=== PATIENT | female | born 1990 | race Caucasian/White ===

== ENCOUNTER 2020-01-27 16:10 | Inpatient (IN) | payer MEDICAID ==
[2020-01-27 17:05] LABS: ADD MANUAL MICROSCOPIC YES; APPEARANCE,URINE CLEAR; BILIRUBIN,URINE NEGATIVE (NEGATIVE); COLOR,URINE STRAW; GLUCOSE, URINE NEGATIVE (NEGATIVE); KETONES,URINE NEGATIVE (NEGATIVE); LEUKOCYTE ESTERASE,URINE TRACE (NEGATIVE); NITRITE,URINE NEGATIVE (NEGATIVE); PROTEIN,URINE 100 mg/dL (NEGATIVE); URINE SPECIFIC GRAVITY 1.026
[2020-01-27 17:06] LABS: AMORPHOUS SEDIMENT,UR TRACE; BACTERIA,URINE TRACE /HPF; WBC,URINE 0-1 /HPF
[2020-01-27 17:28] LABS: URINE AMPHETAMINES SCREEN NEGATIVE; URINE BARBITURATES SCREEN NEGATIVE; URINE BENZODIAZEPINES SCREEN NEGATIVE; URINE COCAINE SCREEN NEGATIVE; URINE MARIJUANA (THC) SCREEN NEGATIVE; URINE METHADONE SCREEN NEGATIVE; URINE PHENCYCLIDINE SCREEN NEGATIVE
[2020-01-27 17:37] LABS: UR PRO/CREAT RATIO RESULT 2.5 mg/mg (0.0-0.2); URINE PROTEIN 481.1 mg/dL (<12)
[2020-01-27 17:47] LABS: ABSOLUTE LYMPHOCYTES (AUTO) 1.7 10^3/uL (0.5-4.7); ABSOLUTE MONOCYTES (AUTO) 0.8 10^3/uL (0.1-1.4); ABSOLUTE NEUT (AUTO) 9.3 10^3/uL (1.7-8.2); BASOPHILS % (AUTO) 0.2 % (0-2); EOSINOPHILS % (AUTO) 0.4 % (0-6); HEMOGLOBIN 9.1 g/dL (12.0-15.5); LYMPHOCYTES % (AUTO) 14.3 % (13-45); MEAN CORPUSCULAR HEMOGLOBIN 27.6 pg (27.0-33.4); MEAN CORPUSCULAR HGB CONC 32.4 g/dL (32.0-36.0); MEAN CORPUSCULAR VOLUME 85 fl (80-97); MONOCYTES % (AUTO) 6.7 % (3-13); PLATELET COUNT 160 10^3/uL (150-450); RED BLOOD COUNT 3.28 10^6/uL (3.72-5.28); RED CELL DISTRIBUTION WIDTH 15.7 % (11.5-14.0); SEGMENTED NEUTROPHILS % (AUTO) 78.4 % (42-78); TOTAL CELLS COUNTED % (AUTO) 100 %; WHITE BLOOD COUNT 11.8 10^3/uL (4.0-10.5)
[2020-01-27 18:09] LABS: ALBUMIN 2.9 g/dL (3.5-5.0); ALKALINE PHOSPHATASE 129 U/L (38-126); ANION GAP 5 (5-19); ASPARTATE AMINO TRANSFERASE 22 U/L (14-36); BILIRUBIN,DIRECT 0.1 mg/dL (0.0-0.4); BILIRUBIN,TOTAL 0.4 mg/dL (0.2-1.3); BLOOD UREA NITROGEN 11 mg/dL (7-20); CALCIUM 7.9 mg/dL (8.4-10.2); CARBON DIOXIDE 22 mmol/L (22-30); CHLORIDE 107 mmol/L (98-107); POTASSIUM 3.7 mmol/L (3.6-5.0); TOTAL PROTEIN 5.5 g/dL (6.3-8.2); URIC ACID 6.4 mg/dL (2.5-6.2)
[2020-01-27 18:14] LABS: GLUCOSE 67 mg/dL (75-110)
--- NOTE | 2020-01-27 19:25 | Admission Physical ---
Datetime Report Generated by CPN: 01/27/2020 19:24 CURRENT ADMISSION Chief Complaint: Other Indication for Induction: Not Applicable Admit Impression : , Intrauterine ; Observation/Evaluation Admit Plan: Admit to Unit; Observation/Evaluation ALLERGIES Medication Allergies: No Medication Allergies: No Known Allergies (01/27/2020) Latex: No Latex Allergies OBSTETRICAL HISTORY EDC: 02/16/2020 00:00 : 3 Para: 2 Term: 1 : 1 Gestational Diabetes: No Rh Sensitization: No Incompetent Cervix: No YOUNG: No Infertility: No ART Treatment: No Uterine Anomaly: No IUGR: No Hx Previous C/S: No Macrosomia: No Hx Loss/Stillborn: No PIH: No Hx : No Placenta Previa/Abruption: No Depression/PP Depression: No PTL/PROM: No Post Hemorrhage: No SEE RECORDS Alcohol: No Marijuana : No Cocaine: No Other Illicit Drugs: No Cigarettes: Never Smoker. [id number] MEDICAL HISTORY Diabetes: No Blood Transfusion: No Pulmonary Disease (Asthma, TB): No Breast Disease: No Hypertension: No Size Mixer Surgery: No Heart Disease: No Hosp/Surgery: No Autoimmune Disorder: No Anesthetic Complications: No Kidney Disease: No Abnormal Pap Smear: No Neuro/Epilepsy: No Psychiatric Disorders: No Other Medical Diseases: No Hepatitis/Liver Disease: No Significant Family History: No Varicosities/Phlebitis: No Trauma/Violence : No Thyroid Dysfunction: No INFECTIOUS HISTORY Gonorrhea: No Genital Herpes: No Chlamydia: No Tuberculosis: No Syphilis: No Hepatitis: No HIV/AIDS Exposure: No Rash or Viral Illness: No HPV: No PHYSICAL EXAM General: Normal HEENT: Normal Neurologic: Normal Thyroid: Normal Heart: Normal Lungs: Normal Breast: Deferred Back: Normal Abdomen: Normal Genitourinary Exam: Normal Extremities: Normal DTRs: Normal Pelvic Type: Adequate FETUS A EGA: 37.1 PLANS FOR LABOR AND DELIVERY Labor and Delivery: None Pain Management: Epidural Feeding Preference: Breast Benefit of Breast Feed Discussed: Yes Circumcision: N/A INFORMED CONSENT Signature: with User ID: [email or web address]
[2020-01-27] MEDS ORDERED: NALBUPHINE HCL INJ 10 MG/1 ML AMPULE INJ ONE (21:56)
[2020-01-27] MEDS ORDERED: PROMETHAZINE HCL INJ 25 MG/1 ML VIAL IV ONE (21:56)
[2020-01-27] MEDS ORDERED: NALBUPHINE HCL INJ 10 MG/1 ML AMPULE ONE (21:58)
[2020-01-27] MEDS ORDERED: PROMETHAZINE HCL INJ 25 MG/1 ML VIAL ONE (21:58)
[2020-01-28] MEDS ORDERED: RINGERS SOLUTION,LACTATED 1,000 ML IV PRN (08:38)
[2020-01-28] MEDS ORDERED: OXYTOCIN/0.9 % SODIUM CHLORIDE 30 UNIT/500 ML RTUINJ IV PRN ×2 (08:41→12:23)
[2020-01-28] MEDS ORDERED: OXYTOCIN 10 UNIT/ML VIAL ONE (08:43)
[2020-01-28] MEDS ORDERED: MISOPROSTOL 0.2 MG TABLET ONE (08:44)
[2020-01-28] MEDS ORDERED: LIDOCAINE 1% INJ-PF (10 MG/ML) 30 ML SDV ONE (08:44)
[2020-01-28] MEDS ORDERED: OXYTOCIN/0.9 % SODIUM CHLORIDE 30 UNIT/500 ML RTUINJ ONE (08:44)
[2020-01-28] MEDS ORDERED: EPHEDRINE SULFATE INJ 50 MG/1 ML AMPULE ONE (10:35)
[2020-01-28] MEDS ORDERED: ROPIVACAINE HCL 0.2% INJ/PF (2 MG/ML) 20 ML SDV ONE (10:36)
[2020-01-28] MEDS ORDERED: FENTANYL/BUPIVACAINE/NS/PF 300 MCG/150 ML RTUINJ EPI ONE (10:36)
[2020-01-28] MEDS ORDERED: FENTANYL CITRATE INJ/PF 100 MCG/2 ML AMPUL ONE (10:58)
[2020-01-28] MEDS ORDERED: DIPH/PERTUSS(ACELL)/TETANUS VAC/PF 0.5 ML SYR (>=10YO) IM PRN (12:23)
[2020-01-28] MEDS ORDERED: MEASLES,MUMPS&RUBELLA VACC/PF 0.5 ML VIAL SUBCUT PRN (12:23)
[2020-01-28] MEDS ORDERED: PROMETHAZINE HCL INJ 25 MG/1 ML VIAL IV PRN (12:23)
[2020-01-28] MEDS ORDERED: BENZOCAINE/MENTHOL AEROSOL SPRAY 56 ML TOP PRN (12:23)
[2020-01-28] MEDS ORDERED: GLYCERIN/WITCH HAZEL LEAF 1 EACH MED..WIPE TP PRN (12:23)
[2020-01-28] MEDS ORDERED: ZOLPIDEM TARTRATE 5 MG TABLET PO PRN (12:23)
[2020-01-28] MEDS ORDERED: NA PHOS,M-B/NA PHOS,DI-BA (ADULT) 133 ML ENEMA PR PRN (12:23)
[2020-01-28] MEDS ORDERED: DIPHENHYDRAMINE HCL 25 MG CAPSULE PO PRN (12:23)
[2020-01-28] MEDS ORDERED: MAGNESIUM HYDROXIDE SUSP 30 ML UDCUP PO PRN (12:23)
[2020-01-28] MEDS ORDERED: PROMETHAZINE HCL 25 MG SUPP.RECT PR PRN (12:23)
[2020-01-28] MEDS ORDERED: PROMETHAZINE HCL 25 MG TABLET PO PRN (12:23)
[2020-01-28] MEDS ORDERED: ACETAMINOPHEN WITH CODEINE #3 TABLET PO PRN ×2 (12:23)
[2020-01-28] MEDS ORDERED: PSEUDOEPHEDRINE HCL 30 MG TABLET PO PRN (12:23)
[2020-01-28] MEDS ORDERED: ACETAMINOPHEN 325 MG TABLET PO PRN (12:23)
[2020-01-28] MEDS ORDERED: DIBUCAINE 1% OINTMENT 28 GM TP PRN (12:23)
[2020-01-28] MEDS ORDERED: NIFEDIPINE 10 MG CAPSULE ONE (13:41)
[2020-01-28] MEDS ORDERED: MAGNESIUM SULFATE 20 GM/500 ML RTUINJ IV ONE (13:51)
[2020-01-28] MEDS ORDERED: MAGNESIUM SULFATE 4 GM/100 ML RTUPB IV ONE ×4 (13:51→14:45)
[2020-01-28] MEDS: MAGNESIUM SULFATE 20 GM/500 ML RTUINJ IV PRN (14:35)
[2020-01-28] MEDS ORDERED: ACETAMINOPHEN 1,000 MG/100 ML RTUPB IV ONE ×2 (14:54→14:55)
[2020-01-28] MEDS ORDERED: IBUPROFEN 800 MG TABLET ONE ×2 (14:54→22:25)
[2020-01-28] MEDS: IBUPROFEN 800 MG TABLET PO SCH ×2 (15:01→22:27)
--- NOTE | 2020-01-28 18:51 | Warning Signs in Babies ---
VOD Warning Signs Datetime Report Generated by [facility]: 01/28/2020 18:51 VOD#608 -Warning Signs in Babies: Viewed with Parent(s)/Family (01/27/2020 16:58:Viry Lara RN)
--- NOTE | 2020-01-28 18:52 | Delivery Summary ---
Del Sum A-C Datetime Report Generated by CPN: 01/28/2020 18:52 DELIVERY PERSONNEL DELIVERY PERSONNEL: [id number] Delivery Doctor:: Naomie Bundy CNM Nurse Hand Filer Balance Wheel Certified:: Gabby Silva CNM Labor and Delivery Nurse:: Viry Lara RNsecond shift supervisor Nurse:: RUMA Hodges Nursery Nurse:: Shahrzad Ga RN Nursery Nurse:: Mini Dominguez RN Hot Stick Worker/JEWELRY DRILL OPERATOR: Lisette Novak, BUILDING INSULATION INSTALLER MATERNAL INFORMATION Delivery Anesthesia: Epidural Medications After Delivery: Pitocin Bolus-Please Comment Meds After Delivery Comment: Pitocin 30 units in 500 ml ns open for bolus at delivery Delivery QBL: 50 Maternal Complications: Precipitous Labor (<3hrs); Other Complication Details: preeclampsia Provider Comments: DIRECT OA VIABLE MALE INFANT WITH SPONTANEOUS CRY. SPONTANEOUS INTACT PLACENTA WITH 3VC. SMALL FIRST DEGREE PERINEAL LACERATION REPAIRED UNDER EPIDURAL ANESTHESIA. MOTHER AND STABLE IN L_D #1. LABOR SUMMARY EDC: 02/16/2020 00:00 No. Babies in Womb: 1 Attempted: No Labor Anesthesia: IV Sedation LABOR INFORMATION Reason for Induction: Pre-Eclampsia Onset of Labor: 01/28/2020 08:48 Complete Dilatation: 01/28/2020 11:51 Oxytocin: Induction Group B Beta Strep: Negative Antibiotics # of Doses: 0 Steroids Given: None Reason Steroids Not Administered: Not Applicable MEMBRANES Membranes Rupture Method: Artificial Rupture of Membranes: 01/28/2020 08:48 Length of Rupture (hr): 3.20 Amniotic Fluid Color: Clear Amniotic Fluid Amount: Small Amniotic Fluid Odor: Normal STAGES OF LABOR Stage 1 hr: 3 Stage 1 min: 3 Stage 2 hr: 0 Stage 2 min: 9 Stage 3 hr: 0 Stage 3 min: 5 Total Time in Labor hr: 3 Total Time in Labor min: 17 VAGINAL DELIVERY Episiotomy: None Laceration #1: Perineal Laceration Extension #1: First Degree Laceration Repair: Yes Sponge Count Correct: N/A Sharps Count Correct: N/A CSECTION DELIVERY Primary Indication: N/A Secondary Indication: N/A CSection Incidence: N/A Labor: N/A Elective: N/A CSection Incision: N/A BABY A INFORMATION Delivery Date/Time: 01/28/2020 12:00 Method of Delivery: Vaginal Nurse Controlled Delivery: No Born in Route : No : N/A Forceps: N/A Vacuum Extraction: N/A Shoulder Dystocia : No PRESENTATION/POSITION BABY A Presentation: Cephalic Cephalic Presentation: Vertex Vertex Position: Right Occipital Anterior Breech Presentation: Shivam PLACENTA INFORMATION BABY A Placenta Delivery Time : 01/28/2020 12:05 Placenta Method of Delivery: Spontaneous Placenta Status: Delivered SCORES BABY A Heart Rate 1 min: >100 bpm Resp Effort 1 min: Good Cry Reflex Irritability 1 min: Cough or Sneeze or Pulls Away Muscle Tone 1 min: Active Motion Color 1 min: Body Calypso, Extremities Blue Resuscitation Effort 1 min: Tactile Stimulation SCORE 1 MIN: 9 Heart Rate 5 min: >100 bpm Resp Effort 5 min: Good Cry Reflex Irritability 5 min: Cough or Sneeze or Pulls Away Muscle Tone 5 min: Active Motion Color 5 min: Body Calypso, Extremities Blue Resuscitation Effort 5 min: N/A SCORE 5 MIN: 9 Resuscitation Effort 10 min: N/A INFANT INFORMATION BABY A Gestational Age at Delivery: 37.2 Gestational Status: Early Term- 37- 38.6 Weeks Outcome : Liveborn Infant Condition : Stable Sex: Male IDENTIFICATION BABY A Verification Date/Time: 01/28/2020 13:33 ID Band Number: [id number] Mother's Name Verified: Yes RN Verifying Infant: M Mraco Additional Verifying Personnel: H Ga WEIGHT/LENGTH BABY A Birthweight (gm): 2667 Weight (lb): 5 Infant Weight (oz): 14 Infant Length (in): 19.25 Infant Length (cm): 48.90 CORD INFORMATION BABY A No. Cord Vessels: 3 Nuchal Cord : N/A Cord Blood Taken: Yes-For Eval (Mom's Blood Type - or O+) Infant Suction: None ASSESSMENT BABY A Complications: None Physical Findings at Delivery: Within Normal Limits Infant Respirations: Appears Normal Skin to Skin: No Continuing Education Director/ALS Called : No Care By: H Harmeet/ Matt Dominguez Transferred To: Remains with Mother SIGNATURES Assignment: Brandi Pierre MD Signature: with User ID: [email or web address] : with User ID: [email or web address] : I was personally available for consultation and serving as supervising physician for the MLP.
--- NOTE | 2020-01-28 18:52 | Birth Certificate Data ---
Cert Data Datetime Report Generated by IBETH: 01/28/2020 18:52 CERTIFICATE DATA Delivery Provider: Naomie Bundy CNM (01/27/2020 16:58:RUMA Hodges) 47a. Care: Yes (01/27/2020 16:58:RUMA Hodges) 47b. Date of First Visit: 09/21/2019 00:00 (01/27/2020 16:58:Viry Lara RN) 47c. Date of Last Visit: 01/25/2020 00:00 (01/27/2020 16:58:Viry Lara RN) 47d. Number of Visits: 7 (01/27/2020 16:58:Viry Lara RN) 48a. Number of Prev Live Births: 2 (01/27/2020 16:58:RUMA Hodges) 48b. Now Livin (01/27/2020 16:58:RUMA Hodges) 48c. Live Births Now : 0 (01/27/2020 16:58:QS system process) 48e. Losses: 0 (01/27/2020 16:58:Karo Hawkins, RN) RISK FACTORS IN THIS 49a. Diabetes: No (01/27/2020 16:58:Jeanine Brito RN) 49b. Hypertension: No (01/27/2020 16:58:Jeanine Brito RN) Type of Hypertension: Gestational (PIH, Pre-eclampsia) (01/27/2020 16:58:Jeanine Brito RN) 49c. Previous Births: 1 (01/27/2020 16:58:Mary Salomon RN) 49d. Stillborns: No (01/27/2020 16:58:Jeanine Brito RN) 49d. IUGR: No (01/27/2020 16:58:Jeanine Brito RN) 49e. Infertility Treatment: No (01/27/2020 16:58:Jeanine Brito RN) Mother's Height 50b. Height Inches: 59 (01/28/2020 14:21:QS system process) Mother's Weight 51a. Pre- Weight (lbs): 95 (01/27/2020 16:58:RUMA Hodges) 51b. Weight at Delivery (lbs): 132 (01/28/2020 14:21:QS system process) 52. Dt Last Normal Menses Began: 05/12/2019 00:00 (01/27/2020 16:58:Mary Salomon RN) Infections Present/Treated 53a. Gonorrhea: No (01/27/2020 16:58:Jeanine Brito RN) Results this Hospital Visit : Negative (01/27/2020 16:58:Jeanine Brito RN) 53b. Syphilis: No (01/27/2020 16:58:Jeanine Brito RN) 53c. Chlamydia: No (01/27/2020 16:58:Jeanine Brito RN) Results this Hospital Visit: Negative (01/27/2020 16:58:Jeanine Brito RN) 53d. Hepatitis B: No (01/27/2020 16:58:Jeanine Brito RN) Results this Hospital Visit: Negative (01/27/2020 16:58:Jeanine Brito RN) 53h. Mother Tested for HBsAG: Yes (01/27/2020 16:58:Jeanine Brito RN) 53j. Test Result: Negative (01/27/2020 16:58:Jeanine Brito RN) Cigarette Smoking Cigarette Smoking: Never Smoker. [id number] (01/27/2020 16:58:Jeanine Brito RN) 55a. 3 Months Before Preg - Ci (01/27/2020 16:58:Jeanine Brito RN) 55b. 1st Trimester of Preg- Ci (01/27/2020 16:58:Jeanine Brito RN) 55c. 2nd Trimester of Preg- Ci (01/27/2020 16:58:Jeanine Brito RN) 55d. 3rd Trimester of Preg- Ci (01/27/2020 16:58:Jeanine Brito RN) Onset of Labor 56a. PROM >12 Hrs: 3.20 (01/27/2020 16:58:QS system process) 56b. Precipitous Labor <3 Hrs: 3 (01/27/2020 16:58:QS system process) 56c. Prolonged Labor > 20 Hrs: 3 (01/27/2020 16:58:QS system process) 57a. Induction of Labor: Induction (01/27/2020 16:58:RUMA Hodges) 57c. Non-Vertex Presentation A: Vertex (01/27/2020 16:58:RUMA Hodges) 57d. Steroids - Lung Mat: None (01/27/2020 16:58:RUMA Hodges) 57d. Steroids - Lung Mat: Not Applicable (01/27/2020 16:58:RUMA Hodges) 57f. Mat [place] or Temp >100.4: 98.5 (01/27/2020 16:58:Viry Lara RN) 57g. Moderate/Heavy Meconium: Clear (01/28/2020 08:48:Viry Lara RN) 57h. Intolerance of Labor: N/A (01/27/2020 16:58:RUMA Hodges) : N/A (01/27/2020 16:58:RUMA Hodges) 57i. Epidural/Spinal Anesthesia: IV Sedation (01/27/2020 16:58:RUMA Hodges) Method of Delivery 58a. Forceps - Unsuccessful A: N/A (01/27/2020 16:58:[facility]) 58b. Vacuum - Unsuccessful A: N/A (01/27/2020 16:58:[facility]) 58c. Presentation at 58c. Presentation at - A : Vertex (01/27/2020 16:58:[facility]) 58c. Presentation at - A : Shivam (01/27/2020 16:58:[facility]) 58c. Presentation at - A : Cephalic (01/28/2020 11:36:Viry Lara ) Final Route and Method of Del 58d. Baby A Route/Delivery: Vaginal (01/27/2020 16:58:[facility]) 58e. Trial of Labor Attempted: No (01/27/2020 16:58:[place]aro [place], [facility]) 58e. Trial of Labor Attempted A: N/A (01/27/2020 16:58:Karo [place], [facility]) Maternal Morbidity 59b. 3rd or 4th Degree Lacs: Perineal (01/27/2020 16:58:Karo [place], [facility]) 59b. 3rd or 4th Degree Lacs: First Degree (01/27/2020 16:58:Viry Lara RN) Birthweight Baby A: 2667 (01/27/2020 16:58:Viry Lara RN) 60a. Pounds : 5 (01/27/2020 16:58:QS system process) 60b. Ounces: 14 (01/27/2020 16:58:QS system process) 61. GA at Delivery Baby A: 37.2 (01/27/2020 16:58:Karo [place], [facility]) : Early Term- 37- 38.6 Weeks (01/27/2020 16:58:QS system process) 62a. 5 Minute Baby A: 9 (01/27/2020 16:58:QS system process)
[2020-01-28] MEDS: DOCUSATE SODIUM 100 MG CAPSULE PO SCH (22:22)
[2020-01-28] MEDS: FERROUS SULFATE 325 MG TABLET PO SCH (22:23)
[2020-01-28] MEDS ORDERED: FAMOTIDINE 20 MG TABLET ONE (22:24)
[2020-01-28] MEDS: FAMOTIDINE 20 MG TABLET PO SCH (22:28)
[2020-01-29] MEDS ORDERED: MAGNESIUM SULFATE 20 GM/500 ML RTUINJ IV ONE (05:17)
[2020-01-29] MEDS: MAGNESIUM SULFATE 20 GM/500 ML RTUINJ IV PRN (05:20)
[2020-01-29 06:59] LABS: HEMATOCRIT 24.5 % (36.0-47.0); MEAN CORPUSCULAR HEMOGLOBIN 27.7 pg (27.0-33.4); MEAN CORPUSCULAR HGB CONC 32.6 g/dL (32.0-36.0); MEAN CORPUSCULAR VOLUME 85 fl (80-97); PLATELET COUNT 143 10^3/uL (150-450); RED BLOOD COUNT 2.89 10^6/uL (3.72-5.28); WHITE BLOOD COUNT 12.3 10^3/uL (4.0-10.5)
[2020-01-29] MEDS ORDERED: IBUPROFEN 800 MG TABLET ONE (07:12)
[2020-01-29] MEDS: IBUPROFEN 800 MG TABLET PO SCH ×3 (07:18→21:38)
--- NOTE | 2020-01-29 07:50 | PDOC PROGRESS REPORT ---
Subjective Date:: 01/29/20 Subjective:: She reports that she feels well today. Reason For Visit: Physical Exam - Physical Exam Vital Signs: Intake & Output 01/28/20 01/29/20 01/30/20 06:59 06:59 06:59 Intake Total 500 Balance 500 Weight 59.9 kg General appearance: PRESENT: no acute distress, well-developed, well-nourished Head exam: PRESENT: atraumatic, normocephalic Pulses: PRESENT: normal dorsalis pedis pul, +2 pedal pulses bilateral Vascular exam: PRESENT: normal capillary refill Extremities exam: PRESENT: full ROM. ABSENT: calf tenderness, clubbing, pedal edema Result Laboratory Results: 01/29/20 06:49 01/27/20 17:35 01/27/20 01/29/20 17:35 06:49 WBC 12.3 H RBC 2.89 L Hgb 8.0 L Hct 24.5 L MCV 85 MCH 27.7 MCHC 32.6 RDW 16.0 H Plt Count 143 L Blood Type O POSITIVE Antibody Screen NEGATIVE Impressions: She is doing well today. Assessment & Plan - Diagnosis (1) Normal vaginal delivery Is this a current diagnosis for this admission?: Yes - Time Time Spent with patient: Less than 15 minutes - Plan Summary Plan Summary: Continue care
[2020-01-29] MEDS: SENNOSIDES/DOCUSATE 8.6-50 MG 1 EACH TABLET PO SCH (09:55)
[2020-01-29] MEDS: DOCUSATE SODIUM 100 MG CAPSULE PO SCH ×2 (09:55→17:25)
[2020-01-29] MEDS: FAMOTIDINE 20 MG TABLET PO SCH ×2 (09:55→21:38)
[2020-01-29] MEDS: PRENATAL VITAMIN W DHA CAPSULE PO SCH (09:55)
[2020-01-29] MEDS: FERROUS SULFATE 325 MG TABLET PO SCH ×2 (09:55→17:25)
[2020-01-30] MEDS: IBUPROFEN 800 MG TABLET PO SCH ×2 (05:45→14:26)
[2020-01-30 08:09] VITALS: BP 140/87
--- NOTE | 2020-01-30 10:49 | PDOC DISCHARGE SUMMARY ---
Impression - Admit/DC Date/PCP Admission Date/Primary Care Provider: 01/27/20 18:36 ALEENA BUSH MD Discharge Date: 01/30/20 - PP Day #2, doing well, no complaints, O+, rubella immune, , Hx anemia. - Discharge Diagnosis (1) Anemia Is this a current diagnosis for this admission?: Yes (3) Normal vaginal delivery Is this a current diagnosis for this admission?: Yes (4) Obstetrical laceration, first degree Is this a current diagnosis for this admission?: Yes (5) Preeclampsia Is this a current diagnosis for this admission?: Yes - Additional Information Resuscitation Status: Full Code Discharge Diet: As Tolerated, Regular Discharge Activity: Activity As Tolerated, No Lifting Over 10 Pounds, Pelvic Rest Referrals: ALEENA BUSH MD [Primary Care Provider] - Prescriptions: Ibuprofen [Motrin 800 mg Tablet] 800 mg PO Q8 #60 tablet Home Medications: Ferrous Sulfate [Ferosul] 1 tab PO DAILY 01/27/20 Prenat 115/Iron Fum/Folic/Dss [ 19 Tablet] 1 tab PO DAILY 01/27/20 Ibuprofen [Motrin 800 mg Tablet] 800 mg PO Q8 #60 tablet 01/30/20 HPI Reason(s) for Admission: Induction of Labor Admission Note: Pre-eclampsia Procedures: NST, Ultrasound Intrapartum Procedure(s): Spontaneous Vaginal Delivery Hospital Course 59. Maternal Morbidity (serious complications experinced by the mother associated with labor and delivery: None of the above Results Laboratory Results: WBC 12.3 10^3/uL (4.0-10.5) H 01/29/20 06:49 RBC 2.89 10^6/uL (3.72-5.28) L 01/29/20 06:49 Hgb 8.0 g/dL (12.0-15.5) L 01/29/20 06:49 Hct 24.5 % (36.0-47.0) L 01/29/20 06:49 MCV 85 fl (80-97) 01/29/20 06:49 MCH 27.7 pg (27.0-33.4) 01/29/20 06:49 MCHC 32.6 g/dL (32.0-36.0) 01/29/20 06:49 RDW 16.0 % (11.5-14.0) H 01/29/20 06:49 Plt Count 143 10^3/uL (150-450) L 01/29/20 06:49 Lymph % (Auto) 14.3 % (13-45) 01/27/20 17:35 [place] % (Auto) 6.7 % (3-13) 01/27/20 17:35 Eos % (Auto) 0.4 % (0-6) 01/27/20 17:35 Baso % (Auto) 0.2 % (0-2) 01/27/20 17:35 Absolute Neuts (auto) 9.3 10^3/uL (1.7-8.2) H 01/27/20 17:35 Absolute Lymphs (auto) 1.7 10^3/uL (0.5-4.7) 01/27/20 17:35 Absolute Monos (auto) 0.8 10^3/uL (0.1-1.4) 01/27/20 17:35 Absolute Eos (auto) 0.0 10^3/uL (0.0-0.6) 01/27/20 17:35 Absolute Basos (auto) 0.0 10^3/uL (0.0-0.2) 01/27/20 17:35 Seg Neutrophils % 78.4 % (42-78) H 01/27/20 17:35 Sodium 134.0 mmol/L (137-145) L 01/27/20 17:35 Potassium 3.7 mmol/L (3.6-5.0) 01/27/20 17:35 Chloride 107 mmol/L (98-107) 01/27/20 17:35 Carbon Dioxide 22 mmol/L (22-30) 01/27/20 17:35 Anion Gap 5 (5-19) 01/27/20 17:35 BUN 11 mg/dL (7-20) 01/27/20 17:35 Creatinine 0.66 mg/dL (0.52-1.25) 01/27/20 17:35 Est GFR ( Amer) > 60 (>60) 01/27/20 17:35 Est GFR (MDRD) Non-Af > 60 (>60) 01/27/20 17:35 Glucose 67 mg/dL (75-110) L 01/27/20 17:35 Uric Acid 6.4 mg/dL (2.5-6.2) H 01/27/20 17:35 Calcium 7.9 mg/dL (8.4-10.2) L 01/27/20 17:35 Total Bilirubin 0.4 mg/dL (0.2-1.3) 01/27/20 17:35 Direct Bilirubin 0.1 mg/dL (0.0-0.4) 01/27/20 17:35 Neonat Total Bilirubin Not Reportable 01/27/20 17:35 Neonat Direct Bilirubin Not Reportable 01/27/20 17:35 Neonat Indirect Bili Not Reportable 01/27/20 17:35 AST 22 U/L (14-36) 01/27/20 17:35 ALT 10 U/L (<35) 01/27/20 17:35 Alkaline Phosphatase 129 U/L (38-126) H 01/27/20 17:35 Lactate Dehydrogenase 173 U/L (120-246) 01/27/20 17:35 Total Protein 5.5 g/dL (6.3-8.2) L 01/27/20 17:35 Albumin 2.9 g/dL (3.5-5.0) L 01/27/20 17:35 Urine Color STRAW 01/27/20 16:24 Urine Appearance CLEAR 01/27/20 16:24 Urine pH 5.0 (5.0-9.0) 01/27/20 16:24 Ur Specific [place] 1.026 01/27/20 16:24 Urine Protein 100 mg/dL (NEGATIVE) H 01/27/20 16:24 Urine Glucose (UA) NEGATIVE mg/dL (NEGATIVE) 01/27/20 16:24 Urine Ketones NEGATIVE mg/dL (NEGATIVE) 01/27/20 16:24 Urine Blood NEGATIVE (NEGATIVE) 01/27/20 16:24 Urine Nitrite NEGATIVE (NEGATIVE) 01/27/20 16:24 Urine Bilirubin NEGATIVE (NEGATIVE) 01/27/20 16:24 Urine Urobilinogen 2.0 mg/dL (<2.0) H 01/27/20 16:24 Ur Leukocyte Esterase TRACE (NEGATIVE) H 01/27/20 16:24 Urine WBC 0-1 /HPF 01/27/20 16:24 Ur Squamous Epith Cells FEW /HPF 01/27/20 16:24 Amorphous Sediment TRACE 01/27/20 16:24 Urine Bacteria TRACE /HPF 01/27/20 16:24 Urine Mucus 1+ 01/27/20 16:24 Urine Creatinine 194.0 mg/dL (16-327) 01/27/20 16:24 Protein/Creatinin Ratio 2.5 mg/mg (0.0-0.2) H 01/27/20 16:24 Urine Total Protein 481.1 mg/dL (<12) H 01/27/20 16:24 Urine Ascorbic Acid 40 (NEGATIVE) H 01/27/20 16:24 Urine Opiates Screen NEGATIVE 01/27/20 16:24 Urine Methadone Screen NEGATIVE 01/27/20 16:24 Ur Barbiturates Screen NEGATIVE 01/27/20 16:24 Ur Phencyclidine Scrn NEGATIVE 01/27/20 16:24 Ur Amphetamines Screen NEGATIVE 01/27/20 16:24 U Benzodiazepines Scrn NEGATIVE 01/27/20 16:24 Urine Cocaine Screen NEGATIVE 01/27/20 16:24 U Marijuana (THC) Screen NEGATIVE 01/27/20 16:24 Blood Type O POSITIVE 01/27/20 17:35 Antibody Screen NEGATIVE 01/27/20 17:35 Plan Health Concerns: iron rich foods, BP precautions Plan of Treatment: d/c home, f/up with [facility] in one week for BP check Time Spent: Less than 30 Minutes
[2020-01-30] MEDS: SENNOSIDES/DOCUSATE 8.6-50 MG 1 EACH TABLET PO SCH (11:23)
[2020-01-30] MEDS: FAMOTIDINE 20 MG TABLET PO SCH (11:23)
[2020-01-30] MEDS: FERROUS SULFATE 325 MG TABLET PO SCH (11:23)
[2020-01-30] MEDS: DOCUSATE SODIUM 100 MG CAPSULE PO SCH (11:23)
[2020-01-30] MEDS: PRENATAL VITAMIN W DHA CAPSULE PO SCH (11:23)
== END 2020-01-30 15:30 | disposition home or self-care (01) | DRG 807 ==
LOC: LC 16:10 → OBSVTOIN 18:36 → LR 18:36 → 2S 01-29 08:56
PROVIDERS: ADMIT Obstetrics & Gynecology Gynecology; ATTEND Obstetrics & Gynecology Gynecology
PROC: 10E0XZZ Delivery of Products of Conception, External Approach (ICD-10-PCS; principal; 2020-01-28)
PROC: 0KQM0ZZ Repair Perineum Muscle, Open Approach (ICD-10-PCS; 2020-01-28)
DX: O62.3 Precipitate labor (principal); Z37.0 Single live birth; O14.94 Unspecified pre-eclampsia, complicating childbirth; O99.02 Anemia complicating childbirth; D64.9 Anemia, unspecified; O70.0 First degree perineal laceration during delivery; Z3A.37 37 weeks gestation of pregnancy
CPT/HCPCS: 1967; 36415; 59025; 80053; 80307; 81001; 82570; 83615; 84156; 84550; 85025; 85027; 86850; 86900; 86901; 88307; 94760; J0131; J2300; J2550; J2590; J2795; J3010; J3475; J3490